=== PATIENT | female | born 1960 ===

== ENCOUNTER 2017-05-21 10:29 | Emergency (ER) | payer OTHER ==
[2017-05-21 12:20] VITALS: BP 118/69
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
== END 2017-05-21 12:41 | disposition home or self-care (01) ==
LOC: UCEAST 10:29
DX: K04.7 Periapical abscess without sinus (principal); S02.5XXA Fracture of tooth (traumatic), initial encounter for closed fracture
CPT/HCPCS: 99202; G0463